=== PATIENT | male | born 1965 | race Asian ===

== ENCOUNTER 2021-02-10 09:51 | Outpatient (CLI) | payer OTHER ==
[2021-02-10 10:25] LABS: PLATELET COUNT 245 K/uL (142-355)
[2021-02-10 10:34] LABS: POTASSIUM 5.8 mmol/L (3.6-5.2)
== END 2021-02-10 19:23 | disposition home or self-care (01) ==
LOC: CT 09:51
PROVIDERS: ATTEND Family Medicine
DX: R05.3 Chronic cough (principal); R04.2 Hemoptysis; J90 Pleural effusion, not elsewhere classified; Z87.891 Personal history of nicotine dependence; Z09 Encounter for follow-up examination after completed treatment for conditions other than malignant neoplasm; R79.89 Other specified abnormal findings of blood chemistry; G89.4 Chronic pain syndrome
CPT/HCPCS: 36415; 80053; 85027; Q9963